=== PATIENT | male | born 1990 | race African-American/Black ===

== ENCOUNTER 2020-12-02 07:29 | Emergency (ER) | payer BC ==
[~2020-12-02] VITALS: Ht 177.8 cm; Wt 103.9 kg
[2020-12-02 07:39] VITALS: BP 131/68
--- NOTE | 2020-12-02 07:43 | ED.ADGEN ---
General Adult EDM: Chief Complaint: COUGH HPI: HPI: Patient is a 30-year-old male who arrives ambulatory to the emergency department complaining of a week and a half long history of a productive cough. Patient reports he has been coughing up sputum during this time and been occasionally short of air. Patient reports that initially he thought he was experiencing the effects of seasonal allergies as he takes Flonase for this and this generally resolves his condition. Despite using his medication, he has had continued coughing. He denies any fevers. He further denies any sick contacts. Additionally he denies any history of chest pain. He is awake, alert and nontoxic-appearing. Review of Systems: Review of Systems: Constitutional: Denies fever or chills. [] Eyes: Denies change in visual acuity. [] HENT: Denies nasal congestion or sore throat. [] Respiratory: Reports shortness of breath with a productive cough. [] Cardiovascular: Denies chest pain or edema. [] GI: Denies abdominal pain, nausea, vomiting, bloody stools or diarrhea. [] : Denies dysuria. [] Musculoskeletal: Denies back pain or joint pain. [] Integument: Denies rash. [] Neurologic: Denies headache, focal weakness or sensory changes. [] Endocrine: Denies polyuria or polydipsia. [] Lymphatic: Denies swollen glands. [] Psychiatric: Denies depression or anxiety. [] Allergies: Allergies: Allergies Coded Allergies Type Severity Reaction Last Updated Verified No Known Drug Allergies 12/02/20 No Physical Exam: PE: Constitutional: Well developed, well nourished, no acute distress, non-toxic appearance. [] HENT: Normocephalic, atraumatic, bilateral external ears normal, oropharynx moist, no oral exudates, nose normal. [] Eyes: PERRLA, EOMI, conjunctiva normal, no discharge. [] Neck: Normal range of motion, no tenderness, supple, no stridor. [] Cardiovascular:Heart rate regular rhythm, no murmur [] Lungs & Thorax: Bilateral breath sounds clear to auscultation [] Abdomen: Bowel sounds normal, soft, no tenderness, no masses, no pulsatile ma sses. [] Skin: Warm, dry, no erythema, no rash. [] Back: No tenderness, no CVA tenderness. [] Extremities: No tenderness, no cyanosis, no clubbing, ROM intact, no edema. [] Neurologic: Alert and oriented X 3, normal motor function, normal sensory function, no focal deficits noted. [] Psychologic: Affect normal, judgement normal, mood normal. [] Current Patient Data: Vital Signs: Vital Signs Date Time Temp Pulse Resp B/P (MAP) Pulse Ox O2 Delivery O2 Flow Rate FiO2 12/02/20 07:39 97.5 68 18 131/68 (89) 98 Room Air 97.5 EKG: EKG: [] Heart Score: C/O Chest Pain: No Risk Factors: Risk Factors: DM, Current or recent (<one month) smoker, HTN, HLP, family history of CAD, obesity. Risk Scores: Score 0 - 3: 2.5% MACE over next 6 weeks - Discharge Home Score 4 - 6: 20.3% MACE over next 6 weeks - Admit for Clinical Observation Score 7 - 10: 72.7% MACE over next 6 weeks - Early Invasive Strategies Radiology/Procedures: Radiology/Procedures: [] Impression: [facility] [address] [place] [address] IMAGING REPORT Signed PATIENT: DENIS SCHNEIDER ACCOUNT: [id number] : 1990 LOCATION: ER AGE: 30 SEX: M EXAM STATUS: REG ER ORD. PHYSICIAN: MAXINE PEREZ DO REASON: COUGH PROCEDURE: PORTABLE CHEST 1V XR CHEST 1V 12/02/2020 8:01 AM INDICATION: Cough COMPARISON: None available TECHNIQUE: Portable frontal view of the chest is provided. FINDINGS: The cardiomediastinal silhouette is within normal limits. Lungs are clear. There are no significant pleural effusions. There is no pulmonary vascular congestion. No pneumothorax. No suspicious osseous abnormality. IMPRESSION: There is no acute cardiopulmonary process. Electronically signed by: Jelani Nava MD (12/02/2020 8:15 AM) [id number] DICTATED and SIGNED BY: JELANI NAVA MD DATE: 12/02/20 [id number] Course & Med Decision Making: Course & Med Decision Making Pertinent Labs and Imaging studies reviewed. (See chart for details) [] Starr Disclaimer: Starr Disclaimer: This electronic medical record was generated, in whole or in part, using a voice recognition dictation system. Departure Departure Impression: Primary Impression: Bronchitis Additional Impression: Person under investigation for COVID-19 Disposition: HOME / SELF CARE / HOMELESS Condition: STABLE Patient Instructions: Allergies, Generic, Bronchitis Scripts Naproxen Sodium (ANAPROX DS) 550 Mg Tablet 1 TAB PO BID for 5 Days, #10 TAB 0 Refills Prov: MAXINE PEREZ DO 12/02/20 Albuterol Sulfate (Proventil Hfa) 6.7 Gm Hfa.aer.ad 1 PUFF INH PRN Q6HRS PRN for SHORTNESS OF BREATH for 5 Days, EACH Prov: MAXINE PEREZ DO 12/02/20 Problem Qualifiers MAXINE PEREZ DO Dec 02, 2020 07:43
[2020-12-02] MEDS ORDERED: PROVENTIL HFA6.7 G2 INH (08:17)
[2020-12-02] MEDS ORDERED: NAPR-682 PO (08:17)
--- NOTE | 2020-12-02 08:18 | RAD ---
XR CHEST 1V 12/02/2020 8:01 AM INDICATION: Cough COMPARISON: None available TECHNIQUE: Portable frontal view of the chest is provided. FINDINGS: The cardiomediastinal silhouette is within normal limits. Lungs are clear. There are no significant pleural effusions. There is no pulmonary vascular congestion. No pneumothora x. No suspicious osseous abnormality. IMPRESSION: There is no acute cardiopulmonary process. Electronically signed by: Gaby Nava MD (12/02/2020 8:15 AM) [id number]
--- NOTE | 2020-12-03 09:49 | NUR ---
IP: Informed pt of negative COVID test. Pt verbalized understanding.
== END 2020-12-02 08:30 | disposition home or self-care (01) ==
LOC: ER 07:29
DX: J40 Bronchitis, not specified as acute or chronic (principal); Z20.822 Contact with and (suspected) exposure to COVID-19
CPT/HCPCS: 71045; 99284; U0003; U0005

== ENCOUNTER 2021-05-19 04:26 | Emergency (ER) | payer BC ==
[~2021-05-19] VITALS: Ht 177.8 cm; Wt 100.0 kg
[~2021-05-19 04:26] MED LIST: NAPR-682 PO; PROVENTIL HFA6.7 G2 INH
--- NOTE | 2021-05-19 06:27 | PHYS DOC ---
Past Medical History Past Medical History: No Pertinent History Additional Past Medical Histor: N/A Past Surgical History: Other Additional Past Surgical Histo: KNEE ARTHROSCOPY X2 Smoking Status: Never Smoker Alcohol Use: Occasionally General Adult EDM: Chief Complaint: Congestion HPI: HPI: Patient is a 31 year old male who present to ER for evaluation of cough and congestion for 3 days. Patient also having trouble breathing. Patient is a smoker, he had cough with green sputum. Patient said he was infected with COVID-19 3 months ago. Patient denies any chest pain, no abdominal pain, no nausea vomiting. Review of Systems: Review of Systems: Constitutional: Denies fever or chills. [] Eyes: Denies change in visual acuity. [] HENT: Positive for nasal congestion, no sore throat Respiratory: Positive for cough and trouble breathing Cardiovascular: Denies chest pain or edema. [] GI: Denies abdominal pain, nausea, vomiting, bloody stools or diarrhea. [] : Denies dysuria. [] Musculoskeletal: Denies back pain or joint pain. [] Integument: Denies rash. [] Neurologic: Denies headache, focal weakness or sensory changes. [] Endocrine: Denies polyuria or polydipsia. [] Lymphatic: Denies swollen glands. [] Psychiatric: Denies depression or anxiety. [] Heart Score: C/O Chest Pain: N/A Risk Factors: Risk Factors: DM, Current or recent (<one month) smoker, HTN, HLP, family history of CAD, obesity. Risk Scores: Score 0 - 3: 2.5% MACE over next 6 weeks - Discharge Home Score 4 - 6: 20.3% MACE over next 6 weeks - Admit for Clinical Observation Score 7 - 10: 72.7% MACE over next 6 weeks - Early Invasive Strategies Allergies: Allergies: Allergies Coded Allergies Type Severity Reaction Last Updated Verified No Known Drug Allergies 12/02/20 No Physical Exam: PE: Constitutional: Well developed, well nourished, no acute distress, non-toxic appearance. [] HENT: Normocephalic, atraumatic, bilateral external ears normal, oropharynx moist, no oral exudates, nose normal. [] Eyes: PERRLA, EOMI, conjunctiva normal, no discharge. [] Neck: Normal range of motion, no tenderness, supple, no stridor. [] Cardiovascular:Heart rate regular rhythm, no murmur [] Lungs & Thorax: Bilateral breath sounds with rales to auscultation. Abdomen: Bowel sounds normal, soft, no tenderness, no masses, no pulsatile masses. [] Skin: Warm, dry, no erythema, no rash. [] Back: No tenderness, no CVA tenderness. [] Extremities: No tenderness, no cyanosis, no clubbing, ROM intact, no edema. [] Neurologic: Alert and oriented X 3, normal motor function, normal sensory function, no focal deficits noted. [] Psychologic: Affect normal, judgement normal, mood normal. [] Current Patient Data: Labs: Current Medications Medications (Trade) Dose Ordered Sig/Halie Route PRN Reason Start Time Stop Time Status Last Admin Dose Admin Albuterol/ Ipratropium (Duoneb) 3 ml 1X ONCE NEB 05/19/21 06:30 05/19/21 06:31 DC 05/19/21 06:40 Vital Signs: Vital Signs Date Time Temp Pulse Resp B/P (MAP) Pulse Ox O2 Delivery O2 Flow Rate FiO2 05/19/21 05:43 98.5 62 18 130/68 (88) 97 Room Air 98.5 EKG: EKG: [] Radiology/Procedures: Radiology/Procedures: [][facility] [address] [place], [place] [id number] IMAGING REPORT Signed PATIENT: DENIS GONZALEZ DACCOUNT: [id number] : 1990 LOCATION: ER AGE: 31 SEX: M EXAM STATUS: REG ER ORD. PHYSICIAN: BRIONNA RAMIRES DO REASON: COUGH AND CONGESTION FOR 3 DAYS PROCEDURE: CHEST AP ONLY XR CHEST 1V Clinical History: Reason: COUGH AND CONGESTION FOR 3 DAYS / Spl. Instructions: / History: Technique: AP view of the chest was obtained at 05/19/2021 6:33 AM. Comparison: December 02, 2020. Findings: The cardiomediastinal silhouette is normal. The pulmonary vasculature is normal. There is linear opacities in lung bases left more than right. Impression: Mild basal infiltrates likely pneumonia. Electronically signed by: Alexandru Mejia III, MD (05/19/2021 6:45 AM) [facility] DICTATED and SIGNED BY: ALEXANDRU MEJIA III, MD DATE: 05/19/21 [id number] 0 Course & Med Decision Making: Course & Med Decision Making Pertinent Labs and Imaging studies reviewed. (See chart for details) Patient is a 31-year-old male who present to ER due to 3-day history of cough and trouble breathing. Chest x-ray show some infiltration consistent with community-acquired pneumonia, patient vital signs stable, patient be discharged home with antibiotic and steroid with albuterol inhaler. Patient will need to follow-up with his family physician for outpatient reevaluation. [employer] Disclaimer: [employer] Disclaimer: This electronic medical record was generated, in whole or in part, using a voice recognition dictation system. Departure Departure Impression: Primary Impression: CAP (community acquired pneumonia) Disposition: HOME / SELF CARE / HOMELESS Condition: STABLE Referrals: NO PCP (PCP) Please follow up with [facility] this week. [address], [address] [place] [address] Phone number: [phone] Patient Instructions: Pneumonia, Adult Additional Instructions: Thank you for visiting our Emergency Department. We appreciate you trusting us with your care. If any additional problems come up don't hesitate to return to visit us. Please follow up with your primary care provider so they can plan additional care if needed and know about the problem that you had. If symptoms worsen come back to the Emergency Department. Any concerning symptoms that start such as chest pain, shortness of air, weakness or numbness on one side of the body, running high fevers or any other concerning symptoms return to the ER. Scripts Albuterol Sulfate (PROAIR HFA INHALER) 8.5 Gm Hfa.aer.ad 1 PUFF INH PRN Q6HRS PRN for SHORTNESS OF BREATH for 30 Days, #1 EACH 0 Refills Prov: BRIONNA RAMIRES DO 05/19/21 Prednisone (PREDNISONE) 20 Mg Tablet 2 TAB PO DAILY for 7 Days, #14 TAB Prov: BRIONNA RAMIRES DO 05/19/21 Azithromycin (ZITHROMAX) 250 Mg Tablet 1 PKG PO UD, #6 TAB Prov: BRIONNA RAMIRES DO 05/19/21 BRIONNA RAMIRES DO May 19, 2021 06:27
[2021-05-19] MEDS ORDERED: IPRATRPIUM/ALBUTEROL 0.5/2.5MG 3 ML NEBU. NEB ONE (06:30)
--- NOTE | 2021-05-19 06:48 | RAD ---
XR CHEST 1V Clinical History: Reason: COUGH AND CONGESTION FOR 3 DAYS / Spl. Instructions: / History: Technique: AP view of the chest was obtained at 05/19/2021 6:33 AM. Comparison: December 02, 2020. Findings: The cardiomediastinal silhouette is normal. The pulmonary vasculature is normal. There is linear opac ities in lung bases left more than right. Impression: Mild basal infiltrates likely pneumonia. Electronically signed by: Emeterio Helton III, MD (05/19/2021 6:45 AM) [facility]
[2021-05-19] MEDS ORDERED: AZIT250T PO (06:55)
[2021-05-19] MEDS ORDERED: PRED20TA PO (06:55)
[2021-05-19] MEDS ORDERED: ALBU2.5V8 INH (06:55)
[2021-05-19 07:09] VITALS: BP 130/77
== END 2021-05-19 07:10 | disposition home or self-care (01) ==
LOC: ER 04:26
DX: J18.9 Pneumonia, unspecified organism (principal)
CPT/HCPCS: 71045; 94640; 99283